=== PATIENT | female | born 1965 | race Caucasian/White ===

== ENCOUNTER 2020-07-25 07:35 | Outpatient (CLI) | payer BC | END 2020-07-25 07:36 | disposition home or self-care (01) | LOC: TBSIIMAG 07:35 | PROVIDERS: ATTEND Neurological Surgery | DX: M47.26 Other spondylosis with radiculopathy, lumbar region (principal); M47.27 Other spondylosis with radiculopathy, lumbosacral region | CPT/HCPCS: 72120; 72148 ==